=== PATIENT | female | born 1985 | race Caucasian/White ===

== ENCOUNTER 2021-02-01 09:54 | Emergency (ER) | payer MEDICAID ==
[~2021-02-01] VITALS: Ht 149.9 cm; Wt 59.0 kg
[2021-02-01 10:28] LABS: BASOPHILS % 0.5 % (0.0-2.0); EOSINOPHILS % 1.1 % (0.0-5.0); HEMATOCRIT. 38.5 % (36.0-48.0); HEMOGLOBIN. 12.4 g/dL (12.0-16.0); LYMPHOCYTES % 26.7 % (20.0-50.0); MEAN CORPUSCULAR HEMOGLOBIN 27.3 pg (28.0-32.0); MEAN PLATELET VOLUME 8.6 fl (7.4-10.4); MONOCYTES % 6.2 % (2.0-8.0); NEUTROPHILS % 65.5 % (40.0-76.0); PLATELET 348 x1000/uL (130-400); RED BLOOD CELL COUNT 4.53 mill/uL (4.2-5.4); RED CELL DISTRIBUTION WIDTH 15.1 % (11.6-14.6)
[2021-02-01 10:35] LABS: CHLORIDE 109 mEq/L (98-107)
[2021-02-01 10:43] LABS: CLARITY URINE CLEAR (CLEAR); COLOR URINE YELLOW (YELLOW); KETONES URINE NEGATIVE (NEGATIVE); LEUKOCYTE ESTERASE URINE TRACE (NEGATIVE); NITRITE URINE NEGATIVE (NEGATIVE); OCCULT BLOOD URINE NEGATIVE (NEGATIVE); PH URINE 6.5 (4.5-8.0); PROTEIN URINE NEGATIVE (NEGATIVE); SPECIFIC GRAVITY URINE 1.022 (1.005-1.030)
[2021-02-01 10:45] LABS: UCG SCREEN NEGATIVE
[2021-02-01] MEDS ORDERED: DOXY100C5 MT (11:13)
[2021-02-01] MEDS ORDERED: CEFTRIAXONE SODIUM 1 G/VIAL IM ONE (11:15)
[2021-02-01 12:16] VITALS: BP 128/64
[2021-02-03 04:10] LABS: NEISSERIA GONORRHOEAE NAA Negative (Negative)
== END 2021-02-01 12:18 | disposition home or self-care (01) ==
LOC: ER 10:33
DX: N72 Inflammatory disease of cervix uteri (principal); Z98.890 Other specified postprocedural states
CPT/HCPCS: 36415; 80053; 81003; 81025; 83690; 85025; 87210; 87491; 87591; 96372; 99283; J0696

== ENCOUNTER 2021-08-27 11:05 | Emergency (ER) | payer MEDICAID ==
[~2021-08-27] VITALS: Ht 157.5 cm; Wt 77.0 kg
[~2021-08-27 11:05] MED LIST: DOXY100C5 MT
[2021-08-27 11:26] VITALS: BP 117/71
[2021-08-27] MEDS ORDERED: ALBU6.7H15 INH (12:43)
[2021-08-27] MEDS ORDERED: P50 MT (12:43)
== END 2021-08-27 13:11 | disposition home or self-care (01) ==
LOC: ER 11:05
DX: J20.9 Acute bronchitis, unspecified (principal); Z98.890 Other specified postprocedural states
CPT/HCPCS: 71045; 99283

== ENCOUNTER 2021-11-20 19:46 | Emergency (ER) | payer MEDICAID ==
[~2021-11-20] VITALS: Ht 152.4 cm; Wt 52.0 kg
[~2021-11-20 19:46] MED LIST changes: +ALBU6.7H15 INH; +P50 MT
[2021-11-20 21:12] VITALS: BP 130/64
== END 2021-11-21 04:20 | disposition left against medical advice (07) ==
LOC: ER 19:46
DX: Z53.21 Procedure and treatment not carried out due to patient leaving prior to being seen by health care provider (principal); I10 Essential (primary) hypertension; E78.00 Pure hypercholesterolemia, unspecified; Z98.890 Other specified postprocedural states
CPT/HCPCS: 93005